=== PATIENT | female | born 1960 | race Hispanic/Latino ===

== ENCOUNTER → 2024-11-26 | Outpatient (CLI) | payer OTHER ==
--- NOTE | 2024-11-27 08:43 | HMCIMG ---
EXAM: CT Cardiac calcium scoring. CLINICAL HISTORY: Screening. TECHNIQUE: Thin collimated axial CT cardiac images were obtained. A CT scan is done according to ALARA (As Low As Reasonably Achievable). CONTRAST: None. COMPARISON: None provided. FINDINGS: Calcium Score: VESSEL Number of lesions Volume mm3 Equi. Mass/mg Calcium score LM 1 11.4 - 10.7 LAD 1 7.0 - 12.1 LCX 0 0.00 - 0.0 RCA 0 0.00 - 0.0 Total 2 18.4 - 22.8 IMPRESSION: The total calcium score is 22.8. 50th percentile. 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 /[place]
== END | disposition home or self-care (01) ==
LOC: RAH 11:17
PROVIDERS: ATTEND Internal Medicine Cardiovascular Disease
DX: Z13.6 Encounter for screening for cardiovascular disorders (principal); I77.810 Thoracic aortic ectasia
CPT/HCPCS: 75571